=== PATIENT | female | born 1960 | race Caucasian/White ===

== ENCOUNTER 2019-12-07 13:44 | Outpatient (CLI) | payer BC, SELFPAY ==
--- NOTE | 2019-12-07 | ECG_ITS ---
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
[2019-12-07 14:21] LABS: Hematocrit 46.3 % (37.0-47.0); Hemoglobin 14.8 g/dL (12.0-15.0)
[2019-12-07 14:31] LABS: Albumin Level 4.4 g/dL (3.5-5.1); Estimated Glomerular Filt Rate > 60; Glucose 87 mg/dL (65-105)
[2019-12-07 14:35] LABS: Urine Cotinine POSITIVE
[2019-12-07 14:50] LABS: Hemoglobin A1C 5.3 % (<5.7)
== END 2019-12-07 13:45 | disposition home or self-care (01) ==
PROVIDERS: PCP Family Medicine; Visit Provider Orthopaedic Surgery
DX: Z01.810 Encounter for preprocedural cardiovascular examination (principal); Z01.812 Encounter for preprocedural laboratory examination; M16.12 Unilateral primary osteoarthritis, left hip
CPT/HCPCS: 36415; 80307; 82040; 82565; 82947; 83036; 85014; 85018; 93005

== ENCOUNTER 2021-06-27 14:41 | Outpatient (CLI) | payer BC, SELFPAY ==
[2021-06-27 15:24] LABS: Hematocrit 45.8 % (37.0-47.0); Hemoglobin 14.9 g/dL (12.0-15.0)
[2021-06-27 15:37] LABS: Albumin Level 4.6 g/dL (3.5-5.1); Estimated Glomerular Filt Rate > 60; Glucose 101 mg/dL (65-110)
[2021-06-27 15:55] LABS: Urine Cotinine NEGATIVE
[2021-06-27 17:53] LABS: Hemoglobin A1C 5.2 % (<5.7)
== END 2021-06-27 14:42 | disposition home or self-care (01) ==
LOC: ANHLAB 14:50
PROVIDERS: PCP Family Medicine; Visit Provider Orthopaedic Surgery
DX: Z01.812 Encounter for preprocedural laboratory examination (principal); E78.5 Hyperlipidemia, unspecified; E05.00 Thyrotoxicosis with diffuse goiter without thyrotoxic crisis or storm; R09.89 Other specified symptoms and signs involving the circulatory and respiratory systems; F17.200 Nicotine dependence, unspecified, uncomplicated
CPT/HCPCS: 80307; 82040; 82565; 82947; 83036; 85014; 85018

== ENCOUNTER 2021-07-08 13:48 | Outpatient (CLI) | payer BC, SELFPAY ==
--- NOTE | 2021-07-08 15:04 | ECG_ITS ---
Measurements Intervals [place] Rate: 58 P: 66 DC: 160 QRS: 66 QRSD: 96 T: 54 QT: 429 QTc: 423 Interpretive Statements SINUS BRADYCARDIA DELAYED PRECORDIAL R/S TRANSITION NONSPECIFIC T-WAVE ABNORMALITY- ANTEROLATERAL LEADS BASELINE ARTIFACT- I, III, AVL, AVF BORDERLINE ECG Electronically Signed On 07-08-2021 15:20:46 CDT by Sam Friedman D.O.
[2021-07-08 15:27] LABS: Basophils Absolute Auto 0.1 K/mm3 (0.0-0.1); Eosinophils Absolute Auto 0.1 K/mm3 (0-0.3); Eosinophils Percent Auto 1.9 % (0-4.4); Hematocrit 41.7 % (37.0-47.0); Hemoglobin 13.7 g/dL (12.0-15.0); Immature Granulocyte Absolute 0.02 K/mm3 (0.00-0.031); Immature Granulocyte Percent A 0.3 % (0-0.5); Lymphocytes Absolute Auto 2.07 K/mm3 (0.9-3.2); Lymphocytes Percent Auto 28.8 % (18.3-44.2); Mean Corpuscular HGB Conc 32.9 g/dl (32-36); Mean Corpuscular Hemoglobin 32.2 pg (26-34); Mean Corpuscular Volume 97.9 fl (80-100); Mean Platelet Volume 9.1 fl (7.4-10.4); Monocytes Absolute Auto 0.5 K/mm3 (0.1-0.6); Monocytes Percent Auto 7.1 % (2.6-8.5); Neutrophils Absolute Auto 4.4 K/mm3 (1.3-6.7); Neutrophils Percent Auto 60.9 % (45.5-73.1); Platelet Count Result 312 k/mm3 (150-375); Red Blood Count 4.26 M/mm3 (4.2-5.4); Red Cell Distribution Width 12.5 % (11.5-14.5); White Blood Count 7.2 K/mm3 (4.5-10.0)
[2021-07-08 15:39] LABS: Anion Gap 6 mmol/L (8-16); Blood Urea Nitrogen 13 mg/dL (7-17); Calcium 9.2 mg/dL (8.4-10.2); Carbon Dioxide 32 mmol/L (22-30); Chloride 102 mmol/L (98-107); Estimated Glomerular Filt Rate > 60; Glucose 101 mg/dL (65-110); Sodium 140 mmol/L (137-145)
== END 2021-07-08 13:49 | disposition home or self-care (01) ==
LOC: ANHSURGERY 13:52
PROVIDERS: Anesthesiology; PCP Family Medicine; Visit Provider Orthopaedic Surgery
DX: Z01.818 Encounter for other preprocedural examination (principal); M16.12 Unilateral primary osteoarthritis, left hip; L65.9 Nonscarring hair loss, unspecified; R00.1 Bradycardia, unspecified
CPT/HCPCS: 36415; 80048; 85025; 87081; 93005

== ENCOUNTER 2021-07-30 01:08 | Day surgery (SDC) | payer BC, SELFPAY ==
[2021-07-08 14:00] VITALS: BMI 21.7
[2021-07-08 15:10] VITALS: BP 117/66; PULSE 73; RESP 16; TEMP 37.2; O2SAT 98
--- NOTE | 2021-07-29 14:29 | WPDANESEPPF ---
Anes - Initial Pre Proc Eval Procedure: Operation Date: 07/30/21 07:30 Proposed Procedures p Left Total Hip Arthroplasty - Yo Almonte MD Date/Time: 07/29/21 14:29 Surgeon: Yo Almonte MD Pre Op Diagnosis: primary OA left hip Patient Data Age: 61 Gender: F Height: 1.66 m Weight: 60.3 kg Last Vital Signs Temp 37.2 C 07/08/21 15:10 Pulse 73 07/08/21 15:10 Resp 16 07/08/21 15:10 BP 117/66 07/08/21 15:10 Pulse Ox 98 07/08/21 15:10 Allergies Allergy/AdvReac Type Severity Reaction Status Date / Time fentanyl AdvReac Nausea Verified 07/30/21 06:20 Home Medications Medication Instructions Recorded Confirmed Type pramipexole 3 mg tablet,extended 3 mg PO QPM 11/28/19 07/08/21 History release 24 hr escitalopram oxalate 20 mg tablet 20 mg PO DAILY #90 tablet 09/28/20 07/30/21 Rx methimazole 5 mg tablet 5 mg PO DAILY tablet 10/29/20 07/30/21 History tramadol 50 mg tablet 50 mg PO Q12H PRN tablet 10/29/20 07/08/21 History diclofenac sodium 75 mg See Rx Instructions .ROUTE 12/03/20 07/08/21 Rx tablet,delayed release .COMPLEX #180 tablet zcrgntu-zscslmblo-qhju 1 tablet PO DAILY 07/08/21 07/30/21 History ergocalciferol (vitamin D2) 1,250 mcg PO WEEKLY 07/08/21 07/30/21 History gabapentin 1,200 mg PO QPM 07/08/21 07/30/21 History spironolactone 100 mg PO DAILY 07/08/21 07/08/21 History Patient hx anesthesia problems: none Family hx anesthesia problems: none Results Review: All pre-operative results and documents have been reviewed as part of the pre-operative evaluation. [facility] Past Medical History Medical History (Updated 07/29/21 @ 14:31 by Sudeep Tatum MD) Graves disease Hernia Major depressive disorder, single episode, unspecified Nicotine dependence, unspecified, uncomplicated Obsessive compulsive personality disorder Osteoarthritis of left hip Other and unspecified hyperlipidemia Other psoriasis Primary localized osteoarthritis of both hips Restless legs syndrome Family History Family History Father Family history of cardiovascular disease Sibling Family history of malignant neoplasm Family history of lung cancer Mother Family history of lung cancer Unknown No problems noted. Unknown Family history of lung cancer Unknown No problems noted. Unknown No problems noted. Social History Social History Smoking packs per day: 1 Smoking cigarettes per day: 20.0 Years smoked: 30 Smoking pack-years: 30.00 Smoking status: Former smoker Tobacco type: cigarettes Second hand tobacco smoke exposure: Yes Smoking end date: 04/05/21 Additional smoking assessment comments: DENIES ANY FORM OF TOBACCO USE Alcohol intake: current Alcohol use details: Social Substance use: current Substance use type: marijuana Other substance usage details: For pain for RLS. 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 Gender identity (if verbalized by the patient): Female Spiritual care concerns: No Anes - Eval Final PreProcedure Day of Procedure 07/29/21 14:29 Patient weight: normal Heart: regular rate and rhythm Lungs: clear to auscultation and normal air movement Airway: Mallampati scale class II Neurological: alert and oriented Last oral intake: >/= 8 hours ASA classification: II Emergent: no Anesthetic plan: proceed Anesthesia type and monitoring: general LMA and ETT Results Review: All pre-operative results and documents have been reviewed as part of the pre-operative evaluation. Informed Consent: The patient's anesthetic plan and its attendant risks and benefits were discussed with the patient/family/POA. Questions were solicited and answers provided to the satisfaction of the patient/family/POA.
[2021-07-30] VITALS (15 sets, daily range): BP systolic 92–129; BP diastolic 42–71; PULSE 70–92; RESP 15–20; TEMP 36.3–38.1; O2SAT 93–100; BMI 21.7; BMI 27.1
--- NOTE | ~2021-07-30 | XR_ITS ---
EXAMINATION: XR hip LT min 2V EXAM DATE: 07/30/2021 10:39 INDICATION: Left hip arthroplasty postoperative evaluation. TECHNIQUE: Portable frontal, crosstable lateral projections left hip obtained immediately following arthroplasty performed by orthopedic surgeon Yo Almonte MD. FINDINGS: Patient is status post left hip arthroplasty. The orthopedic hardware is in expected posi tion. There is small amount of subcutaneous gas, some soft tissue swelling. Correlate with proced ure note. IMPRESSION: Status post left hip arthroplasty. Reviewed, dictated and finalized at location A.
--- NOTE | ~2021-07-30 | XR_ITS ---
EXAMINATION: XR surgery orthopedic EXAM DATE: 07/30/2021 09:02 INDICATION: Intraoperative evaluation. TECHNIQUE: Portable frontal projection left hip obtained intraoperatively. FINDINGS: Single image submitted demonstrates intermediary hardware in the left acetabulum, broach in the femur. Correlate with procedure note. IMPRESSION: Intermediary intraoperative left hip hardware. Reviewed, dictated and finalized at location A.
--- NOTE | 2021-07-30 06:25 | SUR.PREOP ---
0625- Notified Dr. Almonte patient's temperature 100.5. Patient denying any recent exposure to COVID or any acute infections. Per Dr. Almonte can proceed with procedure.
[2021-07-30] MEDS: LACTATED RINGERS 1,000 ML 30 ML IV CONT ×2 (06:45→10:22)
[2021-07-30] MEDS: TRANEXAMIC ACID 1,000MG/ISO100 1,000 MG/100 ML BAG 200 MG IVPB (06:54)
[2021-07-30] MEDS: ACETAMINOPHEN 500 MG TABLET 1000 MG PO (06:55)
--- NOTE | 2021-07-30 07:10 | WPDHPUPDATE1 ---
History and Physical Update Update Date/Time: 07/30/21 07:10 History and Physical has been reviewed, including an updated exam of the patient. There are NO changes in the patient's condition. Risks, benefits, and alternatives have been discussed and questions answered. Patient agrees to proceed with procedure.
[2021-07-30] MEDS: ceFAZolin 2 GM/D5W 50 ML 2 GM/50 ML BAG IVPB ×3 (07:37→23:47)
[2021-07-30 11:07] LABS: Hematocrit 34.8 % (37.0-47.0); Hemoglobin 11.5 g/dL (12.0-15.0)
--- NOTE | 2021-07-30 11:08 | SUR.PHASEI ---
Simple mask removed at 1105.
[2021-07-30] MEDS: CYCLOBENZAPRINE HCL 10 MG TABLET PO (12:41)
[2021-07-30] MEDS: oxyCODONE HCL (*CRX) 5 MG TAB IR PO (12:41)
--- NOTE | 2021-07-30 14:45 | PCPTNOTE ---
On 07/30/21, the student, Brian Velez, provided care and completed [facility] documentation on this patient. I have reviewed the student's documentation and agree with the findings.
--- NOTE | 2021-07-30 14:45 | W.PM.PROC2 ---
Procedure Note - Detailed Date of Procedure 07/30/21 Pre-op Diagnosis primary OA left hip Post-op Diagnosis same Procedure Performed Left Total Hip Arthroplasty Surgeon Yo Almonte MD Gunner Mate Joi Pickard PA-C Anesthesia general Findings Advanced hip arthritis with acetabular erosion superior-anterior. Satisfactory bone quality. Description of Procedure The patient was given preoperative antibiotics. A general anesthetic was administered. The patient was carefully placed in the lateral decubitus position on the PEG board. The shoulders and hips were carefully positioned for component and leg length positioning reference. The hip was prepped and draped in the usual sterile fashion. A longitudinal incision was created over the posterior aspect of the greater trochanter. Careful dissection was brought down through the deep fascia with electrocautery. A minimally invasive optimized posterior approach to the hip was performed. The short external rotators and capsule were taken down in an L-shaped capsulotomy. The tissue was tagged for later repair using number 2 high strength suture. The femoral neck was measured and taken in situ. The femoral head was removed. The acetabulum was carefully exposed. The inferior capsule was released. The labrum was resected. The capsule was also quite hypertrophic particularly inferiorly and anteriorly. This was excised. The acetabulum was sequentially reamed to the intended cup size. The cup was impacted into position with excellent press-fit. Typical anatomic landmarks, including the bony contact points as well as the inferior transverse acetabular ligament were used to confirm cup positioning with preoperative templating. Attention was turned to the femur, which was carefully exposed. The hip was reamed and then broached sequentially. Excellent press-fit was obtained with the broach. The hip was trialed. Measurements were utilized, including the lesser trochanter as well as the center of the femoral head and the tip of the trochanter, and excellent assessment of the offset and leg lengths were confirmed. Radiographs confirmed the intended position of the implants. The real components were impacted into position. Trialing confirmed appropriate leg length and offset with soft tissue balancing as well apparent feel of the leg, both at the knee and the heel. Soft tissues were assessed using the the iliotibial band. Reduction of the posterior capsule and external rotators were also used as a secondary assessment. The hip was copiously irrigated with pulsatile lavage antibiotic solution periodically throughout the procedure. The real components were then assembled and reduced. The hip was stable throughout typical maneuvers, including extension, external rotation to 70 degrees, the position of sleep as well as flexion to 90 degrees with internal rotation past 45 degrees. The shake test confirmed stability without impingement. Osteophytes were removed as necessary. The short external rotators and capsule were repaired back to the posterior trochanter through drill holes. The deep fascia was repaired with running number 2 Quill suture, followed by 0 Stratafix suture and 2-0 Stratafix suture in the dermis. Steri-Strips were placed on the skin, followed by a sterile silver occlusive dressing. There were no complications. Meticulous hemostasis was maintained with the AquaMantys device. The patient was brought to the recovery room in stable condition. There were no complications. Implants The Accolade II hip stem, 127 degree size 5 , was utilized with excellent press-fit. The 54 mm Trident II acetabular component was impacted with excellent press-fit stability. The -2.7 , 28 mm Biolox ceramic femoral head was utilized. Estimated Blood Loss 500 Drains No Packing No Pathology none sent Complications No immediate complications Condition stable Disposition PACU
[2021-07-30] MEDS: DOCUSATE SODIUM 100 MG CAPSULE PO (18:10)
[2021-07-30] MEDS: ERGOCALCIFEROL 50,000 UNIT CAPSULE 50000 UNITS PO (18:10)
[2021-07-30] MEDS: PRAMIPEXOLE 1 MG TABLET 3 MG PO (18:11)
[2021-07-30] MEDS: ASPIRIN 81 MG ENTERIC TABLET PO (18:11)
[2021-07-30] MEDS: GABAPENTIN 400 MG CAPSULE 1200 MG PO (18:11)
[2021-07-30] MEDS: traMADol HCL (*CRX) 50 MG TABLET PO (21:00)
[2021-07-30] MEDS: FAMOTIDINE 20 MG TABLET PO (22:10)
[2021-07-31] MEDS: oxyCODONE HCL (*CRX) 5 MG TAB IR PO (04:04)
[2021-07-31 04:05] VITALS: BP 100/46; PULSE 94; RESP 18; TEMP 37.9; O2SAT 98
[2021-07-31 05:41] LABS: Basophils Percent Auto 0.4 % (0.2-1.2); Hematocrit 27.8 % (37.0-47.0); Hemoglobin 9.2 g/dL (12.0-15.0); Immature Granulocyte Absolute 0.06 K/mm3 (0.00-0.031); Immature Granulocyte Percent A 0.6 % (0-0.5); Lymphocytes Absolute Auto 1.55 K/mm3 (0.9-3.2); Lymphocytes Percent Auto 14.4 % (18.3-44.2); Mean Corpuscular HGB Conc 33.1 g/dl (32-36); Mean Corpuscular Hemoglobin 31.9 pg (26-34); Mean Corpuscular Volume 96.5 fl (80-100); Mean Platelet Volume 9.9 fl (7.4-10.4); Monocytes Percent Auto 9.5 % (2.6-8.5); Neutrophils Absolute Auto 8.1 K/mm3 (1.3-6.7); Neutrophils Percent Auto 75.1 % (45.5-73.1); Platelet Count Result 257 k/mm3 (150-375); Red Blood Count 2.88 M/mm3 (4.2-5.4); Red Cell Distribution Width 11.9 % (11.5-14.5); White Blood Count 10.8 K/mm3 (4.5-10.0)
[2021-07-31 05:54] LABS: Anion Gap 4 mmol/L (8-16); Blood Urea Nitrogen 16 mg/dL (7-17); Calcium 8.2 mg/dL (8.4-10.2); Carbon Dioxide 30 mmol/L (22-30); Chloride 101 mmol/L (98-107); Estimated CRCL calculation 67 ml/min; Estimated Glomerular Filt Rate > 60; Glucose 121 mg/dL (65-110); Potassium 3.7 mmol/L (3.4-5.0); Sodium 135 mmol/L (137-145)
[2021-07-31 06:10] VITALS: TEMP 37.1
[2021-07-31] MEDS: ceFAZolin 2 GM/D5W 50 ML 2 GM/50 ML BAG IVPB (06:24)
[2021-07-31] MEDS: DOCUSATE SODIUM 100 MG CAPSULE PO (11:05)
[2021-07-31] MEDS: ASPIRIN 81 MG ENTERIC TABLET PO (11:05)
[2021-07-31] MEDS: FAMOTIDINE 20 MG TABLET PO (11:05)
[2021-07-31] MEDS: ESCITALOPRAM OXALATE 10 MG TABLET 20 MG PO (11:05)
[2021-07-31] MEDS: methiMAzole 5 MG TAB PO (11:05)
[2021-07-31] MEDS: SPIRONOLACTONE 50 MG TABLET 100 MG PO (11:05)
[2021-07-31] MEDS: oxyCODONE HCL (*CRX) 5 MG TAB IR 10 MG PO (11:09)
--- NOTE | 2021-07-31 11:36 | PM.DS ---
DS: Admitting Diagnosis Discharge Date 07/31/21 Admitting Diagnosis OA Left hip DS: Discharge Diagnosis Discharge Diagnosis (1) Orthopedic aftercare for joint replacement: Code(s): Z47.1 - Aftercare following joint replacement surgery Status: Acute (2) Status post total hip replacement, left: Code(s): Z96.642 - Presence of left artificial hip joint Status: Acute Assessment and Plan: Postop day 1: Left Total hip arthroplasty. Patient tolerated procedure well. No complications. Pain manageable with pain medication. No numbness or tingling. We had a lengthy discussion regarding postoperative wound care, limitations, expectations, and exercises. Patient shows good understanding. Patient has had initial physical therapy and is tolerating it well. DVT prophylaxis: 81 mg baby aspirin b.i.d. for 14 days. Short frequent walks. Compression socks for 3 weeks. Pain medication: Percocet. Continue home medication Diclofenac. Patient has followup appointment with Dr. Almonte in 3 weeks DS: Summary Hospital Course Reason for hospitalization: Total hip arthroplasty Hospital Course: Patient tolerated procedure well. Has had initial PT/OT and made good progress. Status at Discharge Functional status at discharge: uses cane/walker Overall status at discharge: patient is progressing back to baseline Time Spent with Patient Time attestation: Total time spent providing and/or coordinating discharge services: Exam Narrative: Thin 61 y/o female. Resting comfortably in bed. Wearing compression socks bilaterally. Dressing dry and intact with no drainage. Moderate swelling. No ecchymosis. No erythema. No hematoma. Range of motion limited due to pain. Calf nontender. Thigh nontender. Neurologic status intact. No varicosities. Distal pulses palpable. DS: Data Data Completed and Pending Labs on day of discharge: Labs from last 24 hours 07/31/21 07/31/21 05:15 05:15 WBC 10.8 H RBC 2.88 L Hgb 9.2 L Hct 27.8 L MCV 96.5 MCH 31.9 MCHC 33.1 RDW 11.9 Plt Count 257 MPV 9.9 Immature Gran % (Auto) 0.6 H Neut % (Auto) 75.1 H Lymph % (Auto) 14.4 L [place] % (Auto) 9.5 H Eos % (Auto) 0.0 Baso % (Auto) 0.4 Lymph # (Auto) 1.55 [place] # (Auto) 1.0 H Eos # (Auto) 0.0 Baso # (Auto) 0.0 Abs Immat Gran (auto) 0.06 H Absolute Neuts (auto) 8.1 H Absolute Nucleated RBC 0.0 Nucleated RBC % 0.0 Sodium 135 L Potassium 3.7 Chloride 101 Carbon Dioxide 30 Anion Gap 4 L BUN 16 Creatinine 0.70 Estim Creat Clear Calc 67 Estimated GFR > 60 Glucose 121 H Calcium 8.2 L Discharge Plan Discharge Patient Disposition: Home, Self-Care Discharge Instructions: See instruction sheet Stand Alone Forms: General Discharge Instructions Follow-up/Referrals: Joi Pickard PA [Physician [employer]] - Discharge Medications: New aspirin 81 mg tablet,delayed release (DR/EC) 81 mg PO BID 14 Days Qty: 28 RF: 0 oxycodone-acetaminophen 5-325 mg tablet 1 - 2 tablet PO Q4-6H MDD 6 PRN (Reason: pain) Qty: 30 RF: 0 Continued pramipexole [Mirapex ER] 3 mg tablet extended release 24 hr 3 mg PO QPM RF: 0 methimazole 5 mg tablet 5 mg PO DAILY RF: 0 tramadol 50 mg tablet 50 mg PO Q12H PRN (Reason: RLS) RF: 0 ergocalciferol (vitamin D2) 1,250 mcg (50,000 unit) capsule 1,250 mcg PO WEEKLY RF: 0 spironolactone 100 mg tablet 100 mg PO DAILY RF: 0 xwnukhe-ersbmliak-ccqk Tablet 1 tablet PO DAILY RF: 0 gabapentin 300 mg capsule 1,200 mg PO QPM RF: 0 escitalopram oxalate [Lexapro] 20 mg tablet 20 mg PO DAILY Qty: 90 RF: 3 diclofenac sodium 75 mg tablet,delayed release (DR/EC) See Rx Instructions .ROUTE .COMPLEX Qty: 180 RF: 2
== END 2021-07-31 12:11 | disposition home or self-care (01) ==
LOC: ANHSURGERY 05:56 → ANH2MED 11:51
PROVIDERS: Physician Assistant Surgical; PCP Family Medicine; Visit Provider Orthopaedic Surgery
PROC: (CPT 27130; principal; 2021-07-30 07:30)
DX: M16.12 Unilateral primary osteoarthritis, left hip (principal); E05.00 Thyrotoxicosis with diffuse goiter without thyrotoxic crisis or storm; E78.5 Hyperlipidemia, unspecified; L40.8 Other psoriasis; G25.81 Restless legs syndrome; F32.9 Major depressive disorder, single episode, unspecified; Z87.891 Personal history of nicotine dependence; F12.90 Cannabis use, unspecified, uncomplicated
CPT/HCPCS: 27130; 36415; 73502; 80048; 85014; 85018; 85025; 86850; 86900; 86901; 87081; 93005; 97110; 97116; 97161; 97165; 97530; 97535; A9270; C1776; J0131; J0171; J0690; J1100; J1170; J1885; J2270; J2405; J2704; J2795; J7120

== ENCOUNTER 2021-11-27 10:17 | Outpatient (CLI) | payer BC, SELFPAY ==
--- NOTE | ~2021-11-27 | US_ITS ---
EXAMINATION: US thyroid EXAM DATE: 11/27/2021 10:41 INDICATION: Goiter. TECHNIQUE: Multiple grayscale and Doppler images of the thyroid were obtained (by a technologist who performed the scan) and subsequently reviewed. Individual nodules and recommendations may be reporte d in accordance with TI-RADS system as designated by the 2017 ACR White Paper TI-RADS committee. The re is no prior study for comparison. FINDINGS: The right thyroid lobe measures 6.1 x 2.0 x 1.8, the left measuring 5.4 x 1.6 x 2.5 cm, dimensions ar e mildly enlarged. There is diffusely hypervascular and mildly heterogeneous thyroid parenchyma. Ther e is 5 mm nodule in the right there are lobe not likely clinically significant. IMPRESSION: Mild thyromegaly. Reviewed, dictated and finalized at location B. FIELD MANAGER IMPRESSION: Mild thyromegaly.
== END 2021-11-27 10:18 | disposition home or self-care (01) ==
LOC: ANHIMG 10:22
PROVIDERS: PCP Family Medicine
DX: E04.9 Nontoxic goiter, unspecified (principal)
CPT/HCPCS: 76536

== ENCOUNTER 2023-04-15 12:13 | Outpatient (CLI) | payer BC, SELFPAY ==
--- NOTE | 2023-04-15 12:51 | ECG_ITS ---
Measurements Intervals [place] Rate: 57 P: 62 RI: 170 QRS: 64 QRSD: 90 T: 71 QT: 440 QTc: 429 Interpretive Statements SINUS BRADYCARDIA COMPARED TO ECG 07/08/2021 15:13:59 NO SIGNIFICANT CHANGES Electronically Signed On 04-15-2023 13:51:17 CDT by Nik Olmos M.D.
[2023-04-15 12:59] LABS: Hematocrit 42.4 % (37.0-47.0); Hemoglobin 13.8 g/dL (12.0-15.0)
[2023-04-15 13:04] LABS: Albumin Level 4.3 g/dL (3.5-5.1); Estimated Glomerular Filt Rate > 60; Glucose 105 mg/dL (65-110)
[2023-04-15 13:08] LABS: Urine Cotinine NEGATIVE
[2023-04-15 13:53] LABS: Hemoglobin A1C 5.4 % (<5.7)
== END 2023-04-15 12:14 | disposition home or self-care (01) ==
LOC: ANHLAB 12:15
PROVIDERS: PCP Family Medicine; Visit Provider Orthopaedic Surgery
DX: F17.210 Nicotine dependence, cigarettes, uncomplicated (principal); E78.5 Hyperlipidemia, unspecified; M16.11 Unilateral primary osteoarthritis, right hip; E05.00 Thyrotoxicosis with diffuse goiter without thyrotoxic crisis or storm; L64.8 Other androgenic alopecia; R09.89 Other specified symptoms and signs involving the circulatory and respiratory systems
CPT/HCPCS: 80307; 82040; 82565; 82947; 83036; 85014; 85018; 93005

== ENCOUNTER 2023-05-20 10:02 | Outpatient (CLI) | payer BC, SELFPAY ==
[2023-05-20 11:13] LABS: Basophils Absolute Auto 0.1 K/mm3 (0.0-0.1); Basophils Percent Auto 1.2 % (0.2-1.2); Eosinophils Absolute Auto 0.1 K/mm3 (0-0.3); Eosinophils Percent Auto 1.6 % (0-4.4); Hematocrit 42.2 % (37.0-47.0); Hemoglobin 13.6 g/dL (12.0-15.0); Immature Granulocyte Absolute 0.02 K/mm3 (0.00-0.031); Immature Granulocyte Percent A 0.3 % (0-0.5); Lymphocytes Absolute Auto 1.93 K/mm3 (0.9-3.2); Lymphocytes Percent Auto 27.8 % (18.3-44.2); Mean Corpuscular HGB Conc 32.2 g/dl (32-36); Mean Corpuscular Hemoglobin 31.3 pg (26-34); Monocytes Absolute Auto 0.5 K/mm3 (0.1-0.6); Monocytes Percent Auto 7.1 % (2.6-8.5); Neutrophils Absolute Auto 4.3 K/mm3 (1.3-6.7); Platelet Count Result 294 k/mm3 (150-375); Red Blood Count 4.35 M/mm3 (4.2-5.4); Red Cell Distribution Width 12.5 % (11.5-14.5)
[2023-05-20 11:17] LABS: Albumin Level 4.4 g/dL (3.5-5.1)
[2023-05-20 11:20] LABS: Anion Gap 5 mmol/L (8-16); Blood Urea Nitrogen 17 mg/dL (7-17); Calcium 8.9 mg/dL (8.4-10.2); Carbon Dioxide 30 mmol/L (22-30); Chloride 102 mmol/L (98-107); Estimated Glomerular Filt Rate > 60; Glucose 100 mg/dL (65-110); Potassium 3.7 mmol/L (3.4-5.0); Sodium 137 mmol/L (137-145)
[2023-05-20 12:05] LABS: Urine Cotinine NEGATIVE
== END 2023-05-20 10:03 | disposition home or self-care (01) ==
PROVIDERS: Anesthesiology; PCP Family Medicine; Visit Provider Orthopaedic Surgery
DX: Z01.818 Encounter for other preprocedural examination (principal); M16.11 Unilateral primary osteoarthritis, right hip; Z79.899 Other long term (current) drug therapy
CPT/HCPCS: 80048; 80307; 82040; 85025; 87081

== ENCOUNTER 2023-06-16 00:53 | Day surgery (SDC) | payer BC, SELFPAY ==
--- NOTE | 2023-05-20 09:53 | PC.NURSE ---
PRE-OP INSTRUCTIONS, PLEASE READ CAREFULLY Report to the Outpatient Waiting Room, entrance under the green pavilion located off [facility], at time _1130_ on date _06/16/23_. Planned Procedure Time: _1:30 PM_. PACK A SMALL OVERNIGHT BAG AND LEAVE IN THE CAR ALONG WITH YOUR WALKER Time changes happen often and if your time is changed the preop area will call you the afternoon before. - You and your visitor will be asked to self-screen and do not enter if you have any COVID symptoms. - A mask is optional within the hospital at this time. -VISITING HOURS 8AM-8PM Patients may have clear liquids (water, carbonated beverages, clear teas, apple juice) until 3 hours prior to surgery (1030 AM) with a maximum of 20 ounces. - No food from midnight until time of surgery Take the following medications with a SIP of water the morning of surgery: _ESCITALOPRAM, GABAPENTIN, METHIMAZOLE & TRAMADOL IF NEEDED_ DO NOT STOP ANY OF YOUR OTHER PRESCRIPTION MEDICATIONS PRIOR TO SURGERY ?EXCEPT THE FOLLOWING Medications to discontinue per DR. GRAFF - _DICLOFENAC 7 DAYS PRIOR TO SURGERY, Date to take last dose 06/08/23_ Medications to discontinue per ANESTHESIA - _SELENIUM 3 DAYS PRIOR TO SURGERY, Date to take last dose 06/12/23_ Please no make-up, nail czech, hairspray, perfume, deodorant, or body powder the day of surgery. No jewelry (including any body piercings) or valuables the day of surgery, leave them at home. Please take a shower or bath the night before, or the morning of, surgery with an antibacterial soap. Wear comfortable, loose fitting clothing. - Jewelry must be removed prior to entering the operating room. Rings and piercings that are not removed may be cut off. - The hospital will not accept responsibility for valuables. - Please leave all valuables, including medications, at home the day of surgery. If you are going home after surgery, a licensed taxi cab driver must drive you home. - NO public transportation without another adult if you receive anesthesia. - We recommend that an adult stay with you for 24 hours following discharge. - We also recommend that you do not drive, make important decision, drink alcoholic beverages, or take any drugs that were not prescribed by your health care provider for at least 24 hours after your discharge time. Follow any additional instructions given to you from your surgeon. If you or anyone in your household have experienced Covid symptoms in the past week, please notify your surgeon or the nurse liaison at the phone number below for possible testing. Instructions given to _PATIENT_and asked if any additional questions and then verbalized understanding. Patient advised to call surgeon office or pre surgery nurse liaison [phone] if any additional questions.
[2023-05-20 10:31] VITALS: BP 118/58; PULSE 66; RESP 18; TEMP 37.1; O2SAT 100; BMI 23.2
--- NOTE | 2023-06-15 10:24 | WPDANESEPPF ---
Anes - Initial Pre Proc Eval Procedure: Operation Date: 06/16/23 10:30 Proposed Procedures p Right Total Hip Arthroplasty - Yo Almonte MD Date/Time: 06/15/23 10:24 Surgeon: Yo Almonte MD Pre Op Diagnosis: Prim O A Right Hip Patient Data Age: 63 Gender: F Height: 1.65 m Weight: 63.4 kg Last Vital Signs Temp 37.1 C 05/20/23 10:31 Pulse 66 05/20/23 10:31 Resp 18 05/20/23 10:31 BP 118/58 L 05/20/23 10:31 Pulse Ox 100 05/20/23 10:31 O2 Del Method Room Air 05/20/23 10:31 Allergies Allergy/AdvReac Type Severity Reaction Status Date / Time fentanyl AdvReac Unknown Nausea Verified 06/16/23 09:05 Home Medications Medication Instructions Recorded Confirmed Type pramipexole 3 mg tablet,extended 3 mg PO QPM 11/28/19 06/03/23 History release 24 hr (Mirapex ER) tramadol 50 mg tablet 50 mg PO Q12H PRN RLS 10/29/20 06/03/23 History biendej-ngehzqwxk-cuwh tablet 1 tablet PO DAILY 07/08/21 06/03/23 History ergocalciferol (vitamin D2) 1,250 1,250 mcg PO WEEKLY 07/08/21 06/03/23 History mcg (50,000 unit) capsule gabapentin 300 mg capsule See Rx Instructions .Route .COMPLEX 07/08/21 06/03/23 History spironolactone 100 mg tablet 100 mg PO DAILY 07/08/21 06/03/23 History selenium 200 mcg tablet 200 mcg PO BID 01/23/22 06/03/23 History diclofenac sodium 75 mg See Rx Instructions .Route 07/10/22 06/03/23 Rx tablet,delayed release .COMPLEX #180 tabs methimazole 5 mg tablet 5 mg PO DAILY 05/20/23 06/03/23 History escitalopram oxalate 20 mg tablet 20 mg PO DAILY #30 tabs 06/15/23 Rx (Lexapro) Patient hx anesthesia problems: none Family hx anesthesia problems: none Results Review: All pre-operative results and documents have been reviewed as part of the pre-operative evaluation. [facility] Past Medical History Medical History Graves disease Hernia Major depressive disorder, single episode, unspecified Nicotine dependence, unspecified, uncomplicated Obsessive compulsive personality disorder Osteoarthritis of left hip Other and unspecified hyperlipidemia Other psoriasis Primary localized osteoarthritis of both hips Restless legs syndrome Surgical History Surgical History Status post total hip replacement, left (~07/30/21) Family History Family History Father Family history of cardiovascular disease Sibling Family history of malignant neoplasm Family history of lung cancer Mother Family history of lung cancer Unknown No problems noted. Unknown Family history of lung cancer Unknown No problems noted. Unknown No problems noted. 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 Gender identity (if verbalized by the patient): Female Spiritual care concerns: No Anes - E
[2023-06-16] VITALS (12 sets, daily range): BP systolic 103–150; BP diastolic 39–78; PULSE 60–91; RESP 14–19; TEMP 35.7–37.1; O2SAT 90–100; BMI 23.2
--- NOTE | ~2023-06-16 | XR_ITS ---
XR hip RT min 2V DATE: 06/16/2023 14:43 INDICATION: Right total hip arthroplasty TECHNIQUE: Postoperative AP and crosstable lateral views of right hip COMPARISON: 02/26/2023 right hip FINDINGS: There is interval resection of the right femoral head and neck and placement of right total hip arthroplasty, with normal alignment. No fracture or dislocation. Osteopenia. IMPRESSION: Right total hip arthroplasty Reviewed, dictated and finalized at location L.
--- NOTE | 2023-06-16 07:13 | WPDHPUPDATE1 ---
History and Physical Update Update Date/Time: 06/16/23 07:13 History and Physical has been reviewed, including an updated exam of the patient. There are NO changes in the patient's condition. Risks, benefits, and alternatives have been discussed and questions answered. Patient agrees to proceed with procedure.
[2023-06-16] MEDS: LACTATED RINGERS 1,000 ML 30 ML IV CONT ×2 (09:15→14:16)
[2023-06-16] MEDS: ACETAMINOPHEN 500 MG TABLET 1000 MG PO ×2 (09:21→17:48)
[2023-06-16] MEDS: TRANEXAMIC ACID 1,000MG/ISO100 1,000 MG/100 ML BAG 200 MG IVPB (10:01)
[2023-06-16] MEDS: ceFAZolin 2 GM/D5W 50 ML 2 GM/50 ML BAG IVPB ×2 (11:45→21:49)
--- NOTE | 2023-06-16 14:47 | W.PM.PROC2 ---
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 Significant anterior superior erosion. Managed with traditional reaming. The socket was deepened to the previous floor. 10 degree elevated liner. Excellent stability. Description of Procedure The patient was given preoperative antibiotics. A general anesthetic was administered. The patient was carefully placed in the lateral decubitus position on the PEG board. The shoulders and hips were carefully positioned for component and leg length positioning reference. The hip was prepped and draped in the usual sterile fashion. A longitudinal incision was created over the posterior aspect of the greater trochanter. Careful dissection was brought down through the deep fascia with electrocautery. A minimally invasive optimized posterior approach to the hip was performed. The short external rotators and capsule were taken down in an L-shaped capsulotomy. The tissue was tagged for later repair using number 2 high strength suture. The femoral neck was measured and taken in situ. The femoral head was removed. The acetabulum was carefully exposed. The inferior capsule was released. The labrum was resected. The acetabulum was sequentially reamed to the intended cup size. The cup was impacted into position with excellent press-fit. Typical anatomic landmarks, including the bony contact points as well as the inferior transverse acetabular ligament were used to confirm cup positioning with preoperative templating. Attention was turned to the femur, which was carefully exposed. The hip was reamed and then broached sequentially. Excellent press-fit was obtained with the broach. The hip was trialed. Measurements were utilized, including the lesser trochanter as well as the center of the femoral head and the tip of the trochanter, and excellent assessment of the offset and leg lengths were confirmed. The real component was impacted into position. Trialing confirmed appropriate leg length and offset with soft tissue balancing as well apparent feel of the leg, both at the knee and the heel. Soft tissues were assessed using the the iliotibial band. Reduction of the posterior capsule and external rotators were also used as a secondary assessment. The hip was copiously irrigated with pulsatile lavage antibiotic solution periodically throughout the procedure. The real components were then assembled and reduced. The hip was stable throughout typical maneuvers, including extension, external rotation to 70 degrees, the position of sleep as well as flexion to 90 degrees with internal rotation past 45 degrees. The shake test confirmed stability without impingement. Osteophytes were removed as necessary. The short external rotators and capsule were repaired back to the posterior trochanter through drill holes. The deep fascia was repaired with running number 2 Quill suture, followed by 0 Stratafix suture and 2-0 Stratafix suture in the dermis. Steri-Strips were placed on the skin, followed by a sterile silver occlusive dressing. There were no complications. Meticulous hemostasis was maintained with the AquaMantys device. The patient was brought to the recovery room in stable condition. There were no complications. Implants The Accolade II hip stem, 127 degree size 4 , was utilized with excellent press-fit. The 54 mm Trident II acetabular component was impacted with excellent press-fit stability. The +-5, 36 mm Biolox ceramic femoral head was utilized. 10 degree elevated liner. Estimated Blood Loss -300.0 Drains No Packing No Pathology Yes (femoral head) Complications No immediate complications Condition Stable Disposition PACU [facility] Billing Surgery - Charge Forward: Surgery Billing
[2023-06-16] MEDS: HYDROmorphone HCL INJ (*CRX) 1 MG/ML SYR 0.25 MG IV PUSH ×2 (15:26→15:30)
--- NOTE | 2023-06-16 15:49 | ADMGEN ---
This patient, Ana Maria Baptiste, was admitted to [facility] Surg Room 328-01. Patient/family oriented to hospital policies and general routines including ID bracelet, bed and alarms, visiting hours, pain management, procedures, bathroom and other care routines, personal items, smoking policy, room service/diet, and visiting hours. Information on how to activate the Rapid Response Team has been discussed. Patient/Family are encouraged to report perceived risks to care and to ask questions if they do not understand what they are told or what they should do.
[2023-06-16] MEDS: ASPIRIN 81 MG ENTERIC TABLET PO (17:54)
[2023-06-16] MEDS: SENNA/DOCUSATE SODIUM TABLET 2 TAB PO (21:47)
[2023-06-16] MEDS: DICLOFENAC SOD 75 MG TABLET.EC PO (21:48)
[2023-06-16] MEDS: FAMOTIDINE 20 MG TABLET PO (21:48)
[2023-06-16] MEDS: PRAMIPEXOLE 1 MG TABLET PO (21:49)
[2023-06-16] MEDS: GABAPENTIN 400 MG CAPSULE PO (21:50)
[2023-06-17] VITALS: BP 111/52; PULSE 88; RESP 16; TEMP 38.6; O2SAT 95
[2023-06-17] MEDS: ACETAMINOPHEN 500 MG TABLET 1000 MG PO ×3 (00:28→11:37)
--- NOTE | 2023-06-17 00:28 | PC.NURSE ---
tylenol given as scheduled, however at this time patient is noted to have fever of 100.5 F orally
--- NOTE | 2023-06-17 00:40 | PC.NURSE ---
tylenol given as scheduled, however at this time patient is noted to have fever of 101.5 F orally
[2023-06-17] MEDS: oxyCODONE HCL (*CRX) 5 MG TAB IR PO ×2 (01:47→05:40)
[2023-06-17 04:00] VITALS: BP 82/49; PULSE 78; RESP 14; TEMP 36.4; O2SAT 95
[2023-06-17] MEDS: ceFAZolin 2 GM/D5W 50 ML 2 GM/50 ML BAG IVPB ×2 (04:57→11:37)
[2023-06-17] MEDS: PRAMIPEXOLE 1 MG TABLET PO (04:57)
[2023-06-17 06:12] VITALS: BP 88/44
[2023-06-17 06:39] LABS: Basophils Percent Auto 0.3 % (0.2-1.2); Eosinophils Percent Auto 0.1 % (0-4.4); Hematocrit 32.1 % (37.0-47.0); Hemoglobin 10.6 g/dL (12.0-15.0); Immature Granulocyte Absolute 0.05 K/mm3 (0.00-0.031); Immature Granulocyte Percent A 0.4 % (0-0.5); Lymphocytes Absolute Auto 1.75 K/mm3 (0.9-3.2); Lymphocytes Percent Auto 13.4 % (18.3-44.2); Mean Corpuscular Hemoglobin 31.5 pg (26-34); Mean Corpuscular Volume 95.3 fl (80-100); Mean Platelet Volume 9.1 fl (7.4-10.4); Monocytes Absolute Auto 1.1 K/mm3 (0.1-0.6); Monocytes Percent Auto 8.4 % (2.6-8.5); Neutrophils Absolute Auto 10.1 K/mm3 (1.3-6.7); Neutrophils Percent Auto 77.4 % (45.5-73.1); Platelet Count Result 278 k/mm3 (150-375); Red Blood Count 3.37 M/mm3 (4.2-5.4); Red Cell Distribution Width 12.1 % (11.5-14.5)
[2023-06-17 06:51] LABS: Anion Gap 5 mmol/L (8-16); Blood Urea Nitrogen 15 mg/dL (7-17); Calcium 8.2 mg/dL (8.4-10.2); Carbon Dioxide 28 mmol/L (22-30); Chloride 101 mmol/L (98-107); Estimated CRCL calculation 58 ml/min; Estimated Glomerular Filt Rate > 60; Glucose 119 mg/dL (65-110); Potassium 3.9 mmol/L (3.4-5.0); Sodium 134 mmol/L (137-145)
--- NOTE | 2023-06-17 06:58 | PC.NURSE ---
Pt blood pressure low. telehealth nurse educator notified, and attempted to get ahold of Dr. Almonte since no hospitalist is assigned to this case. Was unsuccessful in reaching the doctor. This RN attempted to call Dr. Almonte two times. Voicemail left. This RN then attempted to call the exchange, but was sent to voicemail. Voicemail left. This RN then attempted to call Dr. Suzy Tmaez's PA. Phone call not answered, and voicemail left. Dr Almonte returned call at [phone] and ordered a 500mL bolus of NS
[2023-06-17 07:00] VITALS: BP 80/46; PULSE 74; RESP 16; TEMP 36.4; O2SAT 94
[2023-06-17] MEDS: SODIUM CHLORIDE 0.9% IV 500 ML 999 ML IV CONT (07:15)
[2023-06-17 08:00] VITALS: BP 107/50; PULSE 79; RESP 18; TEMP 35.8; O2SAT 97
[2023-06-17] MEDS: DICLOFENAC SOD 75 MG TABLET.EC PO (08:21)
[2023-06-17] MEDS: GABAPENTIN 300 MG CAPSULE PO (08:21)
[2023-06-17] MEDS: ASPIRIN 81 MG ENTERIC TABLET PO (08:21)
[2023-06-17] MEDS: FAMOTIDINE 20 MG TABLET PO (08:21)
[2023-06-17] MEDS: ESCITALOPRAM OXALATE 10 MG TABLET 20 MG PO (08:24)
[2023-06-17] MEDS: SENNA/DOCUSATE SODIUM TABLET 2 TAB PO (08:24)
[2023-06-17] MEDS: methiMAzole 5 MG TAB PO (10:05)
--- NOTE | 2023-06-17 10:19 | WPDANESPN ---
Anes - Prog Note Post-Op Date/Time: 06/17/23 10:19 Cardiovascular status: normal Respiratory status: normal Airway patency: baseline Mental status: baseline Post-Op hydration status: normal Vital Signs: Last Vital Signs Temp 35.8 C L 06/17/23 08:00 Pulse 79 06/17/23 08:00 Resp 18 06/17/23 08:00 BP 107/50 L 06/17/23 08:00 Pulse Ox 97 06/17/23 08:00 O2 Del Method Room Air 06/17/23 08:17 O2 Flow Rate 6 06/16/23 14:30 Pain Score (VAS): 0 I/O: Intake & Output 06/16/23 06/17/23 06/17/23 23:59 07:59 15:59 Intake Total 440 650 240 Output Total 425 Balance 15 650 240 Laboratory Tests 06/17/23 06:23 06/17/23 06:23 06/16/23 06/17/23 09:16 06:23 WBC 13.0 H RBC 3.37 L Hgb 10.6 L D Hct 32.1 L MCV 95.3 MCH 31.5 MCHC 33.0 RDW 12.1 Plt Count 278 MPV 9.1 Immature Gran % (Auto) 0.4 Neut % (Auto) 77.4 H Lymph % (Auto) 13.4 L [place] % (Auto) 8.4 Eos % (Auto) 0.1 Baso % (Auto) 0.3 Lymph # (Auto) 1.75 [place] # (Auto) 1.1 H Eos # (Auto) 0.0 Baso # (Auto) 0.0 Abs Immat Gran (auto) 0.05 H Absolute Neuts (auto) 10.1 H Absolute Nucleated RBC 0.0 Nucleated RBC % 0.0 Sodium 134 L Potassium 3.9 Chloride 101 Carbon Dioxide 28 Anion Gap 5 L BUN 15 Creatinine 0.80 Estim Creat Clear Calc 58 Estimated GFR > 60 Glucose 119 H Calcium 8.2 L Blood Type O Positive Antibody Screen Negative Post-procedural complaints: none Patient Feedback: Patient satisfied with anesthetic care.
[2023-06-17 12:28] VITALS: BP 101/53; BP 106/47; BP 107/48; PULSE 74; PULSE 75; PULSE 83; RESP 16; RESP 18; TEMP 36.1; TEMP 36.2; O2SAT 97; O2SAT 98; O2SAT 99
[2023-06-17] MEDS: oxyCODONE HCL (*CRX) 5 MG TAB IR 10 MG PO (12:43)
--- NOTE | 2023-06-17 15:23 | PM.DS ---
DS: Admitting Diagnosis Discharge Date 06/17/23 Admitting Diagnosis OA Right hip DS: Discharge Diagnosis Discharge Diagnosis (1) Status post total hip replacement, right: Code(s): Z96.641 - Presence of right artificial hip joint Status: Acute Assessment and Plan: Postop day 1: Right total Hip arthroplasty. Patient tolerated procedure well. No complications. She did have a low blood pressure reading this morning. Improved after a bolus of fluid. She is feeling much better at discharge and pressure has improved. Pain manageable with pain medication. No numbness or tingling. We had a lengthy discussion regarding postoperative wound care, limitations, expectations, and exercises. Patient shows good understanding. She has had initial physical therapy and is tolerating it well. Follow up in office. DS: Summary Hospital Course Reason for hospitalization: Total hip arthroplasty Hospital Course: Patient tolerated procedure well. Has had initial PT/OT and made good progress. Status at Discharge Functional status at discharge: uses cane/walker Overall status at discharge: patient is progressing back to baseline Time Spent with Patient Time attestation: Total time spent providing and/or coordinating discharge services: Exam Narrative: Normal weight 63 y/o female. Resting comfortably in bed. Wearing compression socks bilaterally. Dressing dry and intact with no drainage. Moderate swelling. No ecchymosis. No erythema. No hematoma. Range of motion limited due to pain. Calf nontender. Thigh nontender. Neurologic status intact. No varicosities. Distal pulses palpable. DS: Data Data Completed and Pending Labs on day of discharge: Labs from last 24 hours 06/17/23 06:23 WBC 13.0 H RBC 3.37 L Hgb 10.6 L D Hct 32.1 L MCV 95.3 MCH 31.5 MCHC 33.0 RDW 12.1 Plt Count 278 MPV 9.1 Immature Gran % (Auto) 0.4 Neut % (Auto) 77.4 H Lymph % (Auto) 13.4 L [place] % (Auto) 8.4 Eos % (Auto) 0.1 Baso % (Auto) 0.3 Lymph # (Auto) 1.75 [place] # (Auto) 1.1 H Eos # (Auto) 0.0 Baso # (Auto) 0.0 Abs Immat Gran (auto) 0.05 H Absolute Neuts (auto) 10.1 H Absolute Nucleated RBC 0.0 Nucleated RBC % 0.0 Sodium 134 L Potassium 3.9 Chloride 101 Carbon Dioxide 28 Anion Gap 5 L BUN 15 Creatinine 0.80 Estim Creat Clear Calc 58 Estimated GFR > 60 Glucose 119 H Calcium 8.2 L Discharge Plan Discharge Patient Disposition: Home, Self-Care Discharge Instructions: See green instruction sheets Patient Instructions: Precautions after Total Joint Replacement Surgery (DC), Joint Replacement Surgery (DC) Stand Alone Forms: General Discharge Instructions Follow-up/Referrals: Joi Pickard PA [Physician Blacksmith Helper] - Discharge Medications: New aspirin 81 mg tablet,delayed release (DR/EC) 81 mg PO BID 14 Days Qty: 28 0RF oxycodone-acetaminophen 5-325 mg tablet 1 - 2 tablet PO Q4-6H MDD 6 PRN (Reason: pain) Qty: 30 0RF Continued pramipexole [Mirapex ER] 3 mg tablet extended release 24 hr 3 mg PO QPM tramadol 50 mg tablet 50 mg PO Q12H PRN (Reason: RLS) methimazole 5 mg Tablet 5 mg PO DAILY ergocalciferol (vitamin D2) 1,250 mcg (50,000 unit) capsule 1,250 mcg PO WEEKLY Patient Comments: TAKES ON MONDAYS Rx Instructions: TAKES ON THURSDAY spironolactone 100 mg tablet 100 mg PO DAILY [id number] Tablet 1 tablet PO DAILY gabapentin 300 mg capsule See Rx Instructions .ROUTE .COMPLEX Rx Instructions: 300mg every AM; 400 mg every PM selenium 200 mcg Tablet 200 mcg PO BID diclofenac sodium 75 mg tablet,delayed release (DR/EC) See Rx Instructions .ROUTE .COMPLEX Qty: 180 3RF Dose Instruction: Take 1 tablet by mouth twice daily Rx Instructions: Take 1 tablet by mouth twice daily escitalopram oxalate [Lexapro] 20 mg tablet 20 mg PO DAILY Qty:
== END 2023-06-17 16:10 | disposition home or self-care (01) ==
LOC: ANHSURGERY 14:32 → ANH3MEDSUR 15:45
PROVIDERS: Physician Assistant Surgical; PCP Family Medicine; Visit Provider Orthopaedic Surgery
PROC: (CPT 27130; principal; 2023-06-16 10:30)
DX: M16.11 Unilateral primary osteoarthritis, right hip (principal); E05.00 Thyrotoxicosis with diffuse goiter without thyrotoxic crisis or storm; E78.49 Other hyperlipidemia; G25.81 Restless legs syndrome; F32.9 Major depressive disorder, single episode, unspecified; F42.8 Other obsessive-compulsive disorder; L40.8 Other psoriasis; Z96.642 Presence of left artificial hip joint; F12.90 Cannabis use, unspecified, uncomplicated; Z87.891 Personal history of nicotine dependence
CPT/HCPCS: 27130; 36415; 73502; 80048; 80307; 82040; 85025; 86850; 86900; 86901; 87081; 97110; 97116; 97161; 97165; 97530; 97535; A9270; C1713; C1776; J0171; J0690; J1100; J1170; J1885; J2250; J2270; J2371; J2405; J2704; J2795; J7040; J7120

== ENCOUNTER 2023-08-28 09:07 | Outpatient (CLI) | payer BC, SELFPAY ==
[2023-08-28 15:02] LABS: Thyroid Stimulating Hormone 0.217 uIU/mL (0.465-4.680)
[2023-08-28 18:04] LABS: Free T4 Free Thyroxine 1.42 ng/mL (0.78-2.19)
[2023-09-01 20:29] LABS: Triiodothyronine T3 Free 2.6 pg/mL (2.3-4.2)
== END 2023-08-28 09:08 | disposition home or self-care (01) ==
LOC: ANHGOSHLAB 09:09
PROVIDERS: PCP Family Medicine; Visit Provider Family Medicine
DX: E05.00 Thyrotoxicosis with diffuse goiter without thyrotoxic crisis or storm (principal)
CPT/HCPCS: 36415; 84439; 84443; 84481

== ENCOUNTER 2024-08-04 09:52 | Outpatient (CLI) | payer BC, SELFPAY ==
--- NOTE | ~2024-08-04 | CT_ITS ---
CT Scan of the Chest without Contrast: Clinical Indication: Abnormal finding of lung field Technique: Contiguous sections were acquired throughout the chest without intravenous contrast. Dose reduction technique was used on this scan by utilizing automated exposure control and iterative recon struction technique. The dose-length product (DLP) was 163.26 mGy-cm. Correlation report only from prior outside chest CT dated 11/19/2023. Findings: There is no evidence of any significant mediastinal, hilar or axillary lymphadenopathy. Calcified med iastinal and right hilar lymph nodes are noted. There is no evidence of pleural or pericardial effusion. Probable focal scarring or postoperative change in the right lung apex. Additional 5 mm right apical pulmonary nodule present (axial image 31). There is mild emphysema. There is a 15 mm spiculated nodul e in the right lower lobe (axial image 79). Images through the upper abdomen reveal no abnormalities. Severe degenerative disc disease noted at C 6-C7. Impression: 15 mm spiculated right lower lobe pulmonary nodule. Based on prior report, this may be essentially un changed from prior exam. Additional 5 mm apical pulmonary nodule, likely benign. Multiple additional pulmonary nodules were described on the prior outside report, but are not clearly visualized on today's exam. Direct comparison with images from prior exam is recommended to best assess for stability in particul ar of the spiculated 15 mm right lower lobe pulmonary nodule which has a somewhat suspicious morpholo gy on this examination lesion. Reviewed, dictated and finalized at [facility]. Impression: 15 mm spiculated right lower lobe pulmonary nodule. Based on prior report, this may be essentially unchanged from prior exam. Additional 5 mm apical pulmonary nodule, likely benign. Multiple additional pulmonary nodules were described on the prior outside repor t, but are not clearly visualized on today's exam. Direct comparison with images from prior exam is recommended to best assess for stability in particular of the spiculated 15 mm right lower lobe pulmonary nod ule which has a somewhat suspicious morphology on this examination lesion.
== END 2024-08-04 09:53 | disposition home or self-care (01) ==
PROVIDERS: PCP Internal Medicine; Visit Provider Internal Medicine
DX: R91.8 Other nonspecific abnormal finding of lung field (principal); F17.210 Nicotine dependence, cigarettes, uncomplicated
CPT/HCPCS: 71250

== ENCOUNTER 2024-11-29 09:44 | Outpatient (CLI) | payer BC, SELFPAY ==
--- NOTE | ~2024-11-29 | US_ITS ---
EXAMINATION: US thyroid DATE: 11/29/2024 09:56 INDICATION: Nontoxic goiter TECHNIQUE: Multiple ultrasound images of the thyroid were obtained. COMPARISON: None. FINDINGS: The right thyroid lobe measures 5.7 x 2.5 x 2.0 cm. The left thyroid lobe measures 5.1 x 1.9 x 1.7 c m. The thyroid isthmus measures up to 6 mm maximal thickness. No discrete nodules identified. There i s normal echotexture and echogenicity throughout the thyroid gland. There is diffuse increased vascul ar flow throughout the thyroid. IMPRESSION: 1. Mild thyromegaly with diffuse increased vascular flow on color Doppler which could be seen with th yroiditis. Reviewed, dictated and finalized at location A. INUM SIDING APPLICATOR IMPRESSION: 1. Mild thyromegaly with diffuse increased vascular flow on color Doppler which could be seen with thyroiditis.
== END 2024-11-29 09:45 | disposition home or self-care (01) ==
PROVIDERS: PCP Internal Medicine Endocrinology, Diabetes & Metabolism; Visit Provider Internal Medicine Endocrinology, Diabetes & Metabolism
DX: E06.2 Chronic thyroiditis with transient thyrotoxicosis (principal)
CPT/HCPCS: 76536